=== PATIENT | female | born 1970 | race Caucasian/White ===

== ENCOUNTER 2022-11-20 06:51 | Day surgery (SDC) | payer BC ==
[2022-11-20] MEDS: Ringers Lactate 1,000 ML IV ONE ×2 (07:15→08:29)
[2022-11-20 08:02] VITALS: O2SAT 100
[2022-11-20] MEDS ORDERED: LIDOCAINE 1% MPF 5 ML VIAL ONE (08:29)
[2022-11-20] MEDS ORDERED: propofoL 200 MG/20 ML VIAL IV ONE ×2 (08:29)
[2022-11-20 08:37] LABS: Urine Specific Gravity/Preg 1.025 (1.005-1.030)
[2022-11-20 09:16] VITALS: TEMP 97.7
--- NOTE | 2022-11-20 09:34 | ENDO RPT ---
[address], [address] EGD PROCEDURE REPORT EXAM DATE: 11/20/2022 PATIENT NAME: Clarisse Mijares MR#: [id number] BIRTHDATE: 1970 ATTENDING: Radu Moeller Dr STATUS: outpatient V/[facility] SIGNAL OFFICER: Omayra Early RN and Ynes Lee INDICATIONS: The patient is a 52 yr old Female here for an EGD due to mid epigastric abdominal pain, belching, dyspepsia, and nausea and vomiting PROCEDURE PERFORMED: EGD with biopsy MEDICATIONS: Per Anesthesia. TOPICAL ANESTHETIC: none CONSENT: The patient understands the risks and benefits of the procedure and understands that these risks include, but are not limited to: sedation, allergic reaction, infection, perforation and/or bleeding. Alternative means of evaluation and treatment include, among others: physical exam, x-rays, and/or surgical intervention. The patient elects to proceed with this endoscopic procedure. DESCRIPTION OF PROCEDURE: During intra-op preparation period all mechanical medical equipment was checked for proper function. Hand hygiene and appropriate measures for infection prevention was taken. Procedure, possible complications, and alternatives including but not limited to the possibility of bleeding, perforation, tear, infection, sepsis, need for surgery, need for blood transfusion, and anesthesia related complications were explained to the patient. After the risks, benefits and alternatives of the procedure were thoroughly explained, Informed consent was verified, confirmed and timeout was successfully executed by the treatment team. The patient was placed in the left lateral position. The patient was anesthetized with topical anesthesia. Through the anesthetized oropharyngeal area, the scope was passed without any difficulty. The EG-[id number] ([id number]) and EG-[id number] ([id number]) endoscope was introduced through the mouth and advanced to the third portion of the duodenum. Retroflexed views revealed a small hiatal hernia. The gastroscope was then slowly withdrawn and removed. Partial fundoplication with twist of mucosa was found in the fundus. A small hiatal hernia was found. Mild gastritis was found in the antrum. Multiple biopsies were obtained and sent to pathology. A 2 mm ulcer with central dark heme was found in the antrum. Multiple erosions were found in the antrum. ADVERSE EVENTS: There were no complications. IMPRESSIONS: 1. Partial fundoplication with twist of mucosa in the fundus 2. Small hiatal hernia 3. Mild gastritis in the antrum, s/p biopsies 4. 2 mm ulcer with central dark heme in the antrum 5. Multiple (6) erosions in the antrum RECOMMENDATIONS: 1. await biopsy results 2. acid suppression therapy REPEAT EXAM: Radu Moeller Dr eSigned: Radu Moeller Dr 11/20/2022 9:33 AM cc: CPT CODES: ICD9 CODES: PATIENT NAME: Clarisse Mijares MR#: [id number]
[2022-11-20 09:37] VITALS: BP 106/3
== END 2022-11-20 09:45 | disposition home or self-care (01) ==
LOC: OR 06:51
PROVIDERS: ATTEND Internal Medicine Gastroenterology
PROC: 0DB68ZX Excision of Stomach, Via Natural or Artificial Opening Endoscopic, Diagnostic (ICD-10-PCS; principal; 2022-11-20 08:15)
DX: K25.4 Chronic or unspecified gastric ulcer with hemorrhage (principal); K44.9 Diaphragmatic hernia without obstruction or gangrene; R10.13 Epigastric pain; R14.2 Eructation; R11.2 Nausea with vomiting, unspecified; K29.50 Unspecified chronic gastritis without bleeding
CPT/HCPCS: 88312; 81025; 88305; 43239; J2704 ×2; J2001; J7120